=== PATIENT | male | born 1960 | race Caucasian/White ===

== ENCOUNTER 2020-06-11 11:55 | Inpatient (IN) ==
[2020-06-11] MEDS ORDERED: Cefepime 2 GM in Dextrose 2 GM/50 ML BAG IV ONE (15:00)
[2020-06-11] MEDS ORDERED: metroNIDAZOLE IV 500 MG/100ML 500 MG/100 ML BAG IVPB ONE (15:00)
[2020-06-11] MEDS ORDERED: Vancomycin 1,500 MG in NS 0.9% 250 ml 250 ML IVPB ONE (15:00)
[2020-06-11] MEDS ORDERED: NS 0.9% 1000 ml BAG 1,000 ML IV ONE ×2 (15:01)
[2020-06-11 16:27] LABS: ABS Basophils 0.1 10^3/ul (0-0.2); ABS Eosinophils 0.2 10^3/ul (0-0.6); ABS Lymphocytes 1.3 10^3/ul (1.0-4.8); ABS Monocytes 0.7 10^3/ul (0-0.8); ABS Neutrophils 5.1 10^3/ul (1.5-7.7); Eosinophil % 2.9 %; Hematocrit 37 % (42-52); Hemoglobin 12.1 g/dL (14.0-18.0); Lymphocyte % 17.6 %; Mean Corpuscular HGB Conc 33 g/dL (31-36); Mean Corpuscular Hemoglobin 29 pg (27-31); Mean Corpuscular Volume 87 fL (80-94); Mean Platelet Volume 6.1 fL (7.4-10.4); Platelet Count 538 10^3/uL (150-450); Red Blood Count 4.23 10^6 /uL (4.18-5.48); Red Cell Distribution Width 16 % (10-15); White Blood Count 7.3 10^3/uL (3.5-10.8)
[2020-06-11 16:42] LABS: Albumin 3.6 g/dL (3.2-5.2); Albumin/Globulin Ratio 0.8 (1-3); BUN/Creatinine Ratio 18.8 (8-20); C Reactive Protein 51.9 mg/L (<8.01); EGFR African American 76.7 (>60); EGFR Non-African American 63.4 (>60); Globulin 4.5 g/dL (2-4); Potassium 4.1 mmol/L (3.5-5.0); Total Bilirubin 0.3 mg/dL (0.2-1.0); Total Protein 8.1 g/dL (6.4-8.9)
[2020-06-11] MEDS ORDERED: Morphine 2 MG/ML SYRINGE IV PRN (18:18)
[2020-06-11] MEDS ORDERED: Iodixanol (CONTRAST) 320 MG/ML 100 ML SDV IV ONE (18:28)
[2020-06-11] MEDS ORDERED: Dextrose 50% Syringe 50 ml 25 GM/50 ML SYRINGE IV PUSH PRN (18:29)
[2020-06-11] MEDS ORDERED: Vancomycin per Pharmacy 1 EA NOTE FOLLOW UP SCH (19:00)
[2020-06-11] MEDS ORDERED: Vancomycin 500 MG in NS 0.9% 250 ML IVPB ONE (19:45)
[2020-06-11] MEDS ORDERED: Insulin GLARGINE 100 un/ml 10 ml VIAL SUBCUT SCH (20:00)
[2020-06-11 20:40] LABS: Erythrocyte Sed Rate 115 mm/Hr (0-19)
[2020-06-11] MEDS ORDERED: cefTRIAXone 2 GM ADDV.VIAL 2 GM in NS 0.9% 100 ml BAG 100 ML IV SCH (21:00)
[2020-06-11] MEDS: Heparin 5000 UNITS/ML 1 mL VIAL SUBCUT SCH (22:06)
[2020-06-11] MEDS: Latanoprost 0.005% 2.5 ml BTL BOTH EYES SCH (23:13)
[2020-06-12] MEDS: Cefepime 2 GM in Dextrose 2 GM/50 ML BAG IV SCH ×2 (04:20→17:03)
[2020-06-12] MEDS: Heparin 5000 UNITS/ML 1 mL VIAL SUBCUT SCH ×3 (05:47→23:31)
[2020-06-12] MEDS ORDERED: VANCOMYCIN 1500 MG IVPB SCH (06:30)
[2020-06-12 07:02] LABS: ABS Eosinophils 0.2 10^3/ul (0-0.6); ABS Lymphocytes 1.2 10^3/ul (1.0-4.8); ABS Monocytes 0.7 10^3/ul (0-0.8); ABS Neutrophils 4.4 10^3/ul (1.5-7.7); Eosinophil % 2.4 %; Hematocrit 32 % (42-52); Hemoglobin 10.5 g/dL (14.0-18.0); Lymphocyte % 18.1 %; Mean Corpuscular HGB Conc 32 g/dL (31-36); Mean Corpuscular Hemoglobin 28 pg (27-31); Mean Corpuscular Volume 87 fL (80-94); Mean Platelet Volume 6.5 fL (7.4-10.4); Platelet Count 462 10^3/uL (150-450); Red Cell Distribution Width 16 % (10-15); White Blood Count 6.4 10^3/uL (3.5-10.8)
[2020-06-12 07:21] LABS: Potassium 4.6 mmol/L (3.5-5.0)
[2020-06-12 07:22] LABS: BUN/Creatinine Ratio 17.5 (8-20); Calcium 8.1 mg/dL (8.6-10.3); EGFR African American 74.5 (>60); EGFR Non-African American 61.6 (>60)
[2020-06-12] MEDS: CMCS: Cyclosporine 0.05% OPHTH (NF) 0.4 ML VIAL BOTH EYES SCH ×2 (09:20→20:18)
[2020-06-12] MEDS: Latanoprost 0.005% 2.5 ml BTL BOTH EYES SCH (17:04)
[2020-06-12] MEDS ORDERED: Ondansetron ODT 4 mg TAB 4 MG TAB SL PRN (19:46)
[2020-06-12] MEDS: Insulin GLARGINE 100 un/ml 10 ml VIAL SUBCUT SCH (20:18)
[2020-06-13] MEDS: Cefepime 2 GM in Dextrose 2 GM/50 ML BAG IV SCH ×2 (04:07→16:09)
[2020-06-13 05:53] LABS: ABS Basophils 0.1 10^3/ul (0-0.2); ABS Eosinophils 0.1 10^3/ul (0-0.6); ABS Lymphocytes 1.2 10^3/ul (1.0-4.8); ABS Monocytes 0.6 10^3/ul (0-0.8); ABS Neutrophils 4.4 10^3/ul (1.5-7.7); Eosinophil % 1.8 %; Hematocrit 33 % (42-52); Hemoglobin 10.8 g/dL (14.0-18.0); Lymphocyte % 19.3 %; Mean Corpuscular HGB Conc 33 g/dL (31-36); Mean Corpuscular Hemoglobin 28 pg (27-31); Mean Corpuscular Volume 87 fL (80-94); Platelet Count 451 10^3/uL (150-450); Red Blood Count 3.86 10^6 /uL (4.18-5.48); Red Cell Distribution Width 16 % (10-15); White Blood Count 6.4 10^3/uL (3.5-10.8)
[2020-06-13] MEDS ORDERED: Vancomycin Trough Check NOTE FOLLOW UP ONE (06:00)
[2020-06-13 06:14] LABS: Calcium 8.5 mg/dL (8.6-10.3); EGFR African American 58.9 (>60); EGFR Non-African American 48.7 (>60); Potassium 4.9 mmol/L (3.5-5.0)
[2020-06-13] MEDS: Heparin 5000 UNITS/ML 1 mL VIAL SUBCUT SCH ×3 (06:20→21:58)
[2020-06-13] MEDS: CMCS: Cyclosporine 0.05% OPHTH (NF) 0.4 ML VIAL BOTH EYES SCH ×3 (08:58→22:00)
[2020-06-13] MEDS ORDERED: Influenza VAC *QUAD* 2020-21* 0.5 ML SYRINGE IM ONE (09:00)
[2020-06-13] MEDS: Latanoprost 0.005% 2.5 ml BTL BOTH EYES SCH (17:40)
[2020-06-13] MEDS: Insulin GLARGINE 100 un/ml 10 ml VIAL SUBCUT SCH (21:57)
[2020-06-14] MEDS: Cefepime 2 GM in Dextrose 2 GM/50 ML BAG IV SCH ×2 (04:37→16:59)
[2020-06-14] MEDS: Heparin 5000 UNITS/ML 1 mL VIAL SUBCUT SCH ×3 (05:25→23:17)
[2020-06-14 10:41] LABS: ABS Basophils 0.1 10^3/ul (0-0.2); ABS Eosinophils 0.1 10^3/ul (0-0.6); ABS Lymphocytes 1.4 10^3/ul (1.0-4.8); ABS Monocytes 0.5 10^3/ul (0-0.8); ABS Neutrophils 5.4 10^3/ul (1.5-7.7); Eosinophil % 1.8 %; Hematocrit 34 % (42-52); Hemoglobin 11.4 g/dL (14.0-18.0); Lymphocyte % 18.6 %; Mean Corpuscular HGB Conc 34 g/dL (31-36); Mean Corpuscular Hemoglobin 29 pg (27-31); Mean Corpuscular Volume 86 fL (80-94); Mean Platelet Volume 6.1 fL (7.4-10.4); Platelet Count 459 10^3/uL (150-450); Red Blood Count 3.94 10^6 /uL (4.18-5.48); Red Cell Distribution Width 16 % (10-15); White Blood Count 7.5 10^3/uL (3.5-10.8)
[2020-06-14 10:59] LABS: BUN/Creatinine Ratio 15.5 (8-20); C Reactive Protein 45.85 mg/L (<8.01); Calcium 9.1 mg/dL (8.6-10.3); EGFR African American 68.5 (>60); EGFR Non-African American 56.6 (>60); Potassium 4.6 mmol/L (3.5-5.0)
[2020-06-14] MEDS: CMCS: Cyclosporine 0.05% OPHTH (NF) 0.4 ML VIAL BOTH EYES SCH (12:14)
[2020-06-14] MEDS: Latanoprost 0.005% 2.5 ml BTL BOTH EYES SCH (17:30)
[2020-06-14] MEDS: Insulin GLARGINE 100 un/ml 10 ml VIAL SUBCUT SCH (23:17)
[2020-06-15] MEDS: Cefepime 2 GM in Dextrose 2 GM/50 ML BAG IV SCH ×2 (04:50→17:26)
[2020-06-15] MEDS: Heparin 5000 UNITS/ML 1 mL VIAL SUBCUT SCH ×3 (04:51→22:17)
[2020-06-15] MEDS: Latanoprost 0.005% 2.5 ml BTL BOTH EYES SCH (19:18)
[2020-06-15] MEDS: Insulin GLARGINE 100 un/ml 10 ml VIAL SUBCUT SCH (22:16)
[2020-06-16] MEDS: Heparin 5000 UNITS/ML 1 mL VIAL SUBCUT SCH (04:18)
[2020-06-16] MEDS: Cefepime 2 GM in Dextrose 2 GM/50 ML BAG IV SCH (04:18)
[2020-06-16] MEDS ORDERED: Enoxaparin 40 MG/0.4 ML SYR SUBCUT SCH (09:00)
[2020-06-16] MEDS ORDERED: Dextrose 50% Syringe 50 ml 25 GM/50 ML SYRINGE IV PUSH PRN (12:16)
[2020-06-16] MEDS ORDERED: Cefepime 2 GM in NS 0.9% 50 ML 50 ML IVPB SCH (16:00)
[2020-06-16 17:28] VITALS: BP 125/65
== END 2020-06-16 18:55 | DRG 383 ==
LOC: MED 11:55 → ED 11:55 → MED 20:32
PROVIDERS: ADMIT Student in an Organized Health Care Education/Training Program; ATTEND Internal Medicine